=== PATIENT | female | born 1980 | race Caucasian/White ===

== ENCOUNTER 2021-01-24 19:40 | Emergency (ER) | payer SELFPAY ==
[2021-01-24 19:42] VITALS: BP 140/73; PULSE 58; RESP 18; TEMP 36.3; O2SAT 98; BMI 19.3
[2021-01-24 20:10] LABS: Bacteria 0 SEEN /hpf (None Seen); Mucous, Urine 0 SEEN /hpf (<or=2+)
[2021-01-24 20:21] LABS: Color, Urine Yellow (Yellow); Glucose, Dipstick Normal (Normal); Leukocyte Esterase-Dipstick 100 /ul (Negative); Nitrite-Dipstick Negative (Negative); Occult Blood-Urine 25 /ul (Negative); Protein-Dipstick 30 mg/dl (Negative); Urine Bilirubin Dipstick Negative (Negative); Urine Clarity Sl. Cloudy (Clear); Urine Urobilinogen 1 mg/dl (Normal)
[2021-01-24 20:25] LABS: Absolute Lymphocyte Count 1.06 X10^3/uL (0.83-4.51); Absolute Neutrophil Count 12.7 X10^3/uL (2.0-7.7); Basophil# 0.02 X10^3/uL; Basophil% 0.1 % (0-1); Hematocrit 40.8 % (37-47); Hemoglobin 13.7 g/dL (12.0-15.0); Lymphocyte # 1.06 X10^3/ul (0.83-4.51); Lymphocyte % 7.5 % (19-41); Mean Corp Hgb Conc 33.6 g/dL (32-36); Mean Corpuscular Hgb 30.5 pg (27.0-32.0); Mean Corpuscular Volume 90.9 fL (81-99); Mean Platelet Vol. 11.1 fl (6.2-12.0); Monocyte# 0.33 X10^3/uL; Monocyte% 2.3 % (0-10); NRBC Flagged by Analyzer 0 % (0-5); Neutrophil # 12.73 X10^3/uL (2.7-7.7); Neutrophil % 89.7 % (47-70); Platelet Count 262 K/mm3 (150-450); RBC Distribution Width CV 12.8 % (11.6-14.6); RBC Distribution Width SD 42.6 fl (35.1-43.9); Red Blood Count 4.49 M/mm3 (4.2-5.4); White Blood Count 14.2 K/mm3 (4.4-11.0)
[2021-01-24 20:26] LABS: Ketone-Dipstick 150 mg/dl (Negative)
[2021-01-24 20:31] LABS: Internal QC Validated? YES +Cl - CLEAR BKGD; Pregnancy, Serum, hCG Quali. NEGATIVE Negative
[2021-01-24 20:34] LABS: Anion Gap 9 (5-15); BUN 19 mg/dL (7-18); BUN/Creat Ratio 31.5 RATIO (10-20); Calcium,Total 9.3 mg/dL (8.5-10.1); Chloride 106 mmol/L (98-107); EST Glomerular Filtration Rate 116 mL/min (>60); Est Glom Filt Rate - Afr Amer 140 mL/min (>60); Estimated Creatinine Clearance 104.96 ml/min; Glucose 136 mg/dL (74-106); Potassium 3.7 mmol/L (3.5-5.1); Sodium Level 139 mmol/L (136-145)
[2021-01-24 20:36] LABS: Amorphous Sediment 1+ URATE; Red Blood Cells-Urine 0-5 SEEN /hpf (0-5); Squamous Epithelial Cells - UA 5-10 SEEN /hpf (5-10); White Blood Cells 10-25 SEEN /hpf (0-5)
--- NOTE | 2021-01-24 20:49 | EX.ED.GENINJ ---
HPI <Dr. Choco Nielsen DO - Last Filed: 01/28/21 09:11> History of Present Illness Chief Complaint: Nausea/Vomiting Informant: patient Narrative Narrative: Patient is a 41-year-old female who presents to the emergency department for nausea/vomiting/diarrhea. Her symptoms started last night. No known sick contacts. She has had a mild cough but states that this is chronic for her. She denies any fevers but has had some chills. She has some mild abdominal discomfort but no pain. She denies any urinary symptoms. She has not tried taking thing for symptoms. She has vomited too numerous times to count. She is had 5 episodes of loose runny stool. No blood in the stool. She denies any previous abdominal surgeries. Patient has not been vaccinated for Covid. She denies any lightheadedness, shortness of breath or chest pain. She is currently on a azithromycin for a sinus infection. She denies any recent traveling. PFSH <Dr. Choco Nielsen DO - Last Filed: 01/28/21 09:11> [facility], [facility] Home Medications ondansetron 4 mg PO Q8H PRN 4 Days #10 tab 01/24/21 [Rx Last Taken Unknown] Allergy/AdvReac Type Severity Reaction Status Date / Time No Known Allergies Allergy Verified 01/24/21 19:44 Social History Smoking Status: Current every day smoker tobacco type: cigarettes ROS <Dr. Choco Nielsen DO - Last Filed: 01/28/21 09:11> ROS ED Constitutional Constitutional ED: Reports chills; Denies fever(s) Eyes Eyes: Denies change in vision ENT ENT ED: Denies epistaxis or rhinorrhea Cardiovascular Cardiovascular: Denies chest pain or palpitations Respiratory/Chest Respiratory/Chest: Denies cough, dyspnea or dyspnea on exertion Gastrointestinal Gastrointestinal: Reports diarrhea, nausea and vomiting; Denies abdominal pain, constipation or melena Genitourinary Genitourinary ED: Denies dysuria, hematuria or urinary frequency Musculoskeletal Musculoskeletal: Denies back pain or neck pain Integumentary Denies rash Neurologic Neurologic: Denies dizziness, headache(s) or weakness EXAM <Dr. Choco Nielsen DO - Last Filed: 01/28/21 09:11> Physical Exam Const Vital Signs: 07/04/21 19:42 Temperature 97.3 F L Temperature Source Temporal Pulse Rate 58 L Respiratory Rate 18 Blood Pressure 140/73 H Blood Pressure Mean 95 Pulse Ox 98 Oxygen Delivery Method Room Air Positive well nourished and well developed General Appearance ED: well developed and NAD HEENT Reports normocephalic, head/scalp atraumatic and moist mucous membranes Eyes PERRL and EOMs intact bilaterally Neck supple Chest Wall inspection of chest normal Resp normal respiratory effort and clear to auscultation bilaterally Auscultation: Negative for rales, rhonchi or wheezes Cardio regular rate, regular rhythm and no murmurs GI normal to inspection, nondistended, normoactive bowel sounds and non-tender Palpation: soft; Negative for guarding or rebound tenderness present Back/Spine no CVA tenderness Extremity normal to inspection General Extremety ED: Negative for edema or tenderness General Extremity: Negative for edema Neuro no sensory deficits noted Sensorium / Orientation: alert Motor Exam: strength 5/5 throughout Psych mental status grossly normal Skin no rashes or lesions noted <Dr. Albin Storm, DO - Last Filed: 01/28/21 15:39> Physical Exam Const Vital Signs: 01/24/21 19:42 Temperature 97.3 F L Temperature Source Temporal Pulse Rate 58 L Respiratory Rate 18 Blood Pressure 140/73 H Blood Pressure Mean 95 Pulse Ox 98 Oxygen Delivery Method Room Air MDM <Dr. Choco Nielsen, DO - Last Filed: 01/28/21 09:11> MDM MDM Narrative Medical decision making narrative: Patient presents to the emergency department for nausea/vomiting/diarrhea. Upon arrival vital signs within normal limits. She is in no acute distress. Will check basic lab work, start IV fluids and give Zofran for symptomatic treatment. Patient's work-up showed a mild leukocytosis. She also had urine ketones present consistent with dehydration. No other significant acute abnormality on work-up. On reevaluation after the Zofran and fluids she states that she is feeling worse. She feels a burning sensation going up of her throat whenever she gets nauseous. She is given a GI cocktail and a dose of Reglan. Again on reevaluation she is still feeling nauseous. So she is given a dose of Haldol because she does admit to cannabis use. This could be cyclical vomiting syndrome. We will plan on discharging home. She is given a prescription for Zofran. Return precautions are reviewed. She otherwise is to follow-up with PCP. Lab Data Labs: Laboratory Results - last 24 hr 01/24/21 01/24/21 01/24/21 20:00 20:00 20:00 WBC 14.2 H RBC 4.49 Hgb 13.7 Hct 40.8 MCV 90.9 MCH 30.5 MCHC 33.6 RDW Std Deviation 42.6 RDW Coeff of Perla 12.8 Plt Count 262 MPV 11.1 Immature Gran % (Auto) 0.400 Neut % (Auto) 89.7 H Lymph % (Auto) 7.5 L Harding % (Auto) 2.3 Eos % (Auto) 0.0 Baso % (Auto) 0.1 Absolute Neuts (auto) 12.7 H Absolute Lymphs (auto) 1.06 Nucleated RBC % 0 Sodium 139 Potassium 3.7 Chloride 106 Carbon Dioxide 24.0 Anion Gap 9 BUN 19 H Creatinine 0.60 Estim Creat Clear Calc 104.96 Est GFR (MDRD) Af Amer 140 Est GFR (MDRD) Non-Af 116 BUN/Creatinine Ratio 31.5 H Glucose 136 H Calcium 9.3 Serum , Qual NEGATIVE Urine Color Urine Clarity Urine pH Ur Specific [place] Urine Protein Urine Glucose (UA) Urine Ketones Urine Occult Blood Urine Nitrite Urine Bilirubin Urine Urobilinogen Ur Leukocyte Esterase Urine RBC Urine WBC Ur Squamous Epith Cells Amorphous Sediment Urine Bacteria Urine Mucus 01/24/21 20:00 WBC RBC Hgb Hct MCV MCH MCHC RDW Std Deviation RDW Coeff of Perla Plt Count MPV Immature Gran % (Auto) Neut % (Auto) Lymph % (Auto) [place] % (Auto) Eos % (Auto) Baso % (Auto) Absolute Neuts (auto) Absolute Lymphs (auto) Nucleated RBC % Sodium Potassium Chloride Carbon Dioxide Anion Gap BUN Creatinine Estim Creat Clear Calc Est GFR (MDRD) Af Amer Est GFR (MDRD) Non-Af BUN/Creatinine Ratio Glucose Calcium Serum , Qual Urine Color Yellow Urine Clarity Sl. Cloudy Urine pH 6.0 Ur Specific [place] 1.020 Urine Protein 30 H Urine Glucose (UA) Normal Urine Ketones 150 A* Urine Occult Blood 25 H Urine Nitrite Negative Urine Bilirubin Negative Urine Urobilinogen 1 H Ur Leukocyte Esterase 100 H Urine RBC 0-5 SEEN Urine WBC 10-25 SEEN Ur Squamous Epith Cells 5-10 SEEN Amorphous Sediment 1+ URATE Urine Bacteria 0 SEEN Urine Mucus 0 SEEN <Dr. Albin Storm, DO - Last Filed: 01/28/21 15:39> [facility] MDM Narrative Medical decision making narrative: Care of the patient was turned over to me. Patient is feeling better on reevaluation. Patient was discharged home. Patient was instructed return if worse in any way. Patient understood and was agreeable with the plan. All questions were answered. Lab Data Labs: Laboratory Results - last 24 hr 01/24/21 01/24/21 01/24/21 20:00 20:00 20:00 WBC 14.2 H RBC 4.49 Hgb 13.7 Hct 40.8 MCV 90.9 MCH 30.5 MCHC 33.6 RDW Std Deviation 42.6 RDW Coeff of Perla 12.8 Plt Count 262 MPV 11.1 Immature Gran % (Auto) 0.400 Neut % (Auto) 89.7 H Lymph % (Auto) 7.5 L [place] % (Auto) 2.3 Eos % (Auto) 0.0 Baso % (Auto) 0.1 Absolute Neuts (auto) 12.7 H Absolute Lymphs (auto) 1.06 Nucleated RBC % 0 Sodium 139 Potassium 3.7 Chloride 106 Carbon Dioxide 24.0 Anion Gap 9 BUN 19 H Creatinine 0.60 Estim Creat Clear Calc 104.96 Est GFR (MDRD) Af Amer 140 Est GFR (MDRD) Non-Af 116 BUN/Creatinine Ratio 31.5 H Glucose 136 H Calcium 9.3 Serum , Qual NEGATIVE Urine Color Urine Clarity Urine pH Ur Specific [place] Urine Protein Urine Glucose (UA) Urine Ketones Urine Occult Blood Urine Nitrite Urine Bilirubin Urine Urobilinogen Ur Leukocyte Esterase Urine RBC Urine WBC Ur Squamous Epith Cells Amorphous Sediment Urine Bacteria Urine Mucus 01/24/21 20:00 WBC RBC Hgb Hct MCV MCH MCHC RDW Std Deviation RDW Coeff of Perla Plt Count MPV Immature Gran % (Auto) Neut % (Auto) Lymph % (Auto) [place] % (Auto) Eos % (Auto) Baso % (Auto) Absolute Neuts (auto) Absolute Lymphs (auto) Nucleated RBC % Sodium Potassium Chloride Carbon Dioxide Anion Gap BUN Creatinine Estim Creat Clear Calc Est GFR (MDRD) Af Amer Est GFR (MDRD) Non-Af BUN/Creatinine Ratio Glucose Calcium Serum , Qual Urine Color Yellow Urine Clarity Sl. Cloudy Urine pH 6.0 Ur Specific [place] 1.020 Urine Protein 30 H Urine Glucose (UA) Normal Urine Ketones 150 A* Urine Occult Blood 25 H Urine Nitrite Negative Urine Bilirubin Negative Urine Urobilinogen 1 H Ur Leukocyte Esterase 100 H Urine RBC 0-5 SEEN Urine WBC 10-25 SEEN Ur Squamous Epith Cells 5-10 SEEN Amorphous Sediment 1+ URATE Urine Bacteria 0 SEEN Urine Mucus 0 SEEN Discharge Plan Triage Chief Complaint: Nausea/Vomiting ED Provider: Choco Nielsen Dx/Rx/DC Orders Clinical Impression: Nausea & vomiting Instructions: ED Vomiting and Diarrhea ... Prescriptions: New ondansetron 4 mg tablet,disintegrating 4 mg PO Q8H PRN (Reason: nausea and vomiting) 4 Days Qty: 10 RF: 0 Primary Care Provider: Samuel Sebastian Referrals: Samuel Sebastian MD [Primary Care Provider] - 3-5 Days if not improving Disposition Disposition: Home, Self Care Discharge Date/Time: 01/24/21 23:12
[2021-01-24] MEDS: Ondansetron 4 MG/2 ML Vial IV (20:59)
[2021-01-24] MEDS: 0.9% Normal Saline 1,000 ML 999 ML IV (20:59)
[2021-01-24] MEDS: Mag Hydrox/Al Hydrox/Simeth 30 ML UDC PO (22:05)
[2021-01-24] MEDS: Metoclopramide 10 MG/2 ML Vial 5 MG IV (22:05)
[2021-01-24] MEDS: Haloperidol Lactate 5 MG/ML Vial IM (22:24)
[2021-01-24 22:25] VITALS: BP 121/79; PULSE 53; RESP 18; O2SAT 99
== END 2021-01-24 23:12 | disposition home or self-care (01) ==
PROVIDERS: Emergency Provider Emergency Medicine
DX: R11.2 Nausea with vomiting, unspecified (principal); R19.7 Diarrhea, unspecified; F17.210 Nicotine dependence, cigarettes, uncomplicated; J32.9 Chronic sinusitis, unspecified; Z79.2 Long term (current) use of antibiotics
CPT/HCPCS: 80048; 81001; 84703; 85025; 87426; 96361; 96372; 96374; 96375; 99283; J7030; A4216; J2405